=== PATIENT | female | born 1990 | race American Indian/Alaskan Native ===

== ENCOUNTER 2017-02-12 15:27 | Emergency (ER) | payer MEDICAID, OTHER ==
[2017-02-12 15:28] VITALS: BMI 34.5
[2017-02-12 15:49] VITALS: O2SAT 100
--- NOTE | 2017-02-12 17:52 | C.PDOC ---
History Of Present Illness <Julisa Dickens - Last Filed: 02/12/17 19:01> <Mireya Yost - Last Filed: 02/12/17 21:38> 26 yr old female with , presents to the ER with complaints of spotting on and off for the past 3 days. Patient states her LMP was in September and has been irregular and she has spotted on and off since then. Patient also c/o lower abdominal pain with . Patient denies fever, chills, chest pain, SOB, nausea, vomiting, diarrhea, dysuria, incontinence, back pain, weakness or numbness. (Julisa Dickens) History Per: Patient Onset/Duration Of Symptoms: Intermittent Episodes (3 days) <Julisa Dickens - Last Filed: 02/12/17 19:01> <Mireya Yost - Last Filed: 02/12/17 21:38> Time Seen by Provider: 02/12/17 15:56 Chief Complaint (Nursing): Female Genitourinary Past Medical History Reviewed: Historical Data, Nursing Documentation, Vital Signs - Medical History PMH: No Chronic Diseases Surgical History: Cholecystectomy Family History: States: No Known Family Hx - Social History Hx Tobacco Use: Yes Hx Alcohol Use: Yes Hx Substance Use: No - Immunization History Hx Tetanus Toxoid Vaccination: No Hx Influenza Vaccination: Yes Hx Pneumococcal Vaccination: Yes <Julisa Dickens - Last Filed: 02/12/17 19:01> Vital Signs: Last Vital Signs Temp 97.7 F 02/12/17 20:49 Pulse 104 H 02/12/17 20:49 Resp 20 02/12/17 20:49 BP 141/83 02/12/17 20:49 Pulse Ox 100 02/12/17 20:49 - [facility] Procedures INJECT RH IMMUNE GLOBUL (05/10/15) Review Of Systems Except As Marked, All Systems Reviewed And Found Negative. Constitutional: Negative for: Fever, Chills Cardiovascular: Negative for: Chest Pain Respiratory: Negative for: Shortness of Breath Gastrointestinal: Positive for: Abdominal Pain. Negative for: Nausea, Vomiting , Diarrhea Genitourinary: Positive for: Frequency, Vaginal Bleeding, Other ((+) Vaginal spotting). Negative for: Dysuria, Incontinence Musculoskeletal: Negative for: Back Pain Neurological: Negative for: Weakness, Numbness <Julisa Dickens - Last Filed: 02/12/17 19:01> Physical Exam - Physical Exam Appears: Well, Non-toxic, No Acute Distress Skin: Warm, Dry Head: Atraumatic, Normacephalic Eye(s): bilateral: Normal Inspection, PERRL, EOMI Oral Mucosa: Moist Neck: Normal ROM Chest: Symmetrical, No Tenderness Cardiovascular: Rhythm Regular, No Murmur Respiratory: Normal Breath Sounds, No Rales, No Rhonchi, No Stridor, No Wheezing Gastrointestinal/Abdominal: Bowel Sounds, Soft, Tenderness (Mild lower right pelvic tenderness.), No Guarding, No Rebound Back: No CVA Tenderness Extremity: Normal ROM, No Calf Tenderness, No Swelling Neurological/Psych: Oriented x3, Normal Speech, Normal Cognition, Normal Motor <Julisa Dickens - Last Filed: 02/12/17 19:01> ED Course And Treatment - Laboratory Results Result Diagrams: 02/12/17 17:54 02/12/17 17:54 Urine POC: Positive O2 Sat by Pulse Oximetry: 100 Progress Note: pt to be signed out to Dr Yost to f/u pelvic sonogram, ua. and dispo accordingly Reevaluation Time: 19:00 Reassessment Condition: Unchanged <Julisa Dickens - Last Filed: 02/12/17 19:01> - Laboratory Results Result Diagrams: 02/12/17 17:54 02/12/17 17:54 <Mireya Yost - Last Filed: 02/12/17 21:38> Medical Decision Making <Julisa Dickens - Last Filed: 02/12/17 19:01> <Mireya Yost - Last Filed: 02/12/17 21:38> Medical Decision Making: PLAN: * US - Transvaginal * GC Chlamydia * CBC * BETA Quant * Urinalysis (Julisa Dickens) Disposition - Disposition Disposition Time: 19:03 <Julisa Dickens - Last Filed: 02/12/17 19:01> Counseled Patient/Family Regarding: Studies Performed, Diagnosis, Need For Followup, Smoking Cessation - Disposition Disposition Time: 19:00 <Mireya Yost - Last Filed: 02/12/17 21:38> - Disposition Referrals: 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 - Scribe Statement The provider has reviewed the documentation as recorded by the Scribe <Julisa Dickens - Last Filed: 02/12/17 19:01> <Mireya Yost - Last Filed: 02/12/17 21:38> - Scribe Statement Jacquelin Barreto All medical record entries made by the Scribe were at my direction and personally dictated by me. I have reviewed the chart and agree that the record accurately reflects my personal performance of the history, physical exam, medical decision making, and the department course for this patient. I have also personally directed, reviewed, and agree with the discharge instructions and disposition. (Julisa Dickens)
[2017-02-12 17:59] LABS: BASO # 0.1 K/uL (0.0-0.2); EOS # 0.1 K/uL (0.0-0.7); LYMPH # 2.9 K/uL (1.0-4.3); MEAN CELL VOLUME 87.7 fL (81.0-99.0); MEAN CORPUSCULAR HEMOGLOBIN 30.2 pg (27.0-31.0); MEAN CORPUSCULAR HGB CONC 34.4 g/dL (33.0-37.0); MEAN PLATELET VOLUME 9.4 fL (7.2-11.7); MONO # 0.5 K/uL (0.0-0.8); MONO % 3.8 % (0.0-10.0); RED CELL DISTRIBUTION WIDTH 13.2 % (11.5-14.5); WHITE BLOOD COUNT 12.5 K/uL (4.8-10.8)
[2017-02-12 18:07] LABS: CHLORIDE 101 mmol/L (98-107)
[2017-02-12 18:08] LABS: POTASSIUM 3.5 mmol/L (3.6-5.2); SODIUM 135 mmol/L (132-148)
[2017-02-12 18:10] LABS: ALB/GLOB RATIO 1.5 (1.0-2.1); ALKALINE PHOSPHATASE 61 U/L (38-126); ALT/SGPT 39 U/L (9-52); AST/SGOT 27 U/L (14-36); BILIRUBIN,TOTAL 0.5 mg/dL (0.2-1.3); BLOOD UREA NITROGEN 7 mg/dL (7-17); CARBON DIOXIDE 19 mmol/L (22-30); GFR AFRICAN-AMERICAN > 60; TOTAL PROTEIN 7.4 g/dL (6.3-8.3)
[2017-02-12 18:11] LABS: CALCIUM 8.8 mg/dl (8.6-10.4); GLUCOSE,RANDOM 59 mg/dL (65-105)
[2017-02-12 18:15] LABS: RBC URINE 4 /hpf (0-3); TRANSITIONAL EPITHIAL < 1 /hpf (0-3); URINE BACTERIA RARE (<OCC); URINE BILIRUBIN NEGATIVE (NEGATIVE); URINE COLOR Yellow (YELLOW); URINE GLUCOSE (UA) NORMAL (Normal); URINE KETONE NEGATIVE (NEGATIVE); URINE PROTEIN NEGATIVE (NEGATIVE); URINE UROBILINOGEN NORMAL mg/dL (0.2-1.0); WBC URINE 7 /hpf (0-5)
[2017-02-12 18:16] LABS: URINE BLOOD 1+ (NEGATIVE); URINE LEUKOCYTE ESTERASE 1+ Leu/uL (Negative)
[2017-02-12 20:50] VITALS: BP 141/83; PULSE 104; RESP 20; TEMP 97.7
--- NOTE | 2017-02-13 11:16 | US ---
PROCEDURE: Obstetrical ultrasound examination HISTORY: right pelvic pain, bleeding COMPARISON: Not available TECHNIQUE: Transabdominal FINDINGS: The examination demonstrates a single live intrauterine gestation in cephalic presentation. The heart rate is 145 beats per minute. A grossly normal quantity of amniotic fluid is visualized. The cervix is closed and measures 3.8 cm in length. A normal posterior placenta is identified. The placenta is low lying, the inferior margin approximately 7 mm from the internal cervical os. Followup is advised. biometry yields a gestational age by ultrasound of 20 weeks 0 days. The DANIELLE by ultrasound is 07/02/2017. The EFW is 346.17 g. Limited review of anatomy demonstrates no gross abnormality. Two normal kidneys are demonstrated. Fluid distends the stomach and urinary bladder. A 4 chamber heart is visualized. A three-vessel umbilical cord is identified. IMPRESSION: Single live intrauterine gestation of approximately 20 weeks 0 days gestational age. No gross anatomic abnormality. Normal amniotic fluid volume. Posterior placenta, low lying. Followup advised. Cervix long and closed. heart rate 145. Preliminary interpretation of this examination was reported by [facility] at 9:24 p.m. on 02/12/2017. There is concurrence of this report with the preliminary interpretation.
== END 2017-02-12 21:55 | disposition home or self-care (01) ==
LOC: C.ER 15:27
DX: O20.0 Threatened abortion (principal); O23.42 Unspecified infection of urinary tract in pregnancy, second trimester; Z3A.20 20 weeks gestation of pregnancy

== ENCOUNTER 2017-03-04 10:34 | Emergency (ER) | payer MEDICAID ==
[2017-03-04 11:32] VITALS: BMI 34.0
--- NOTE | 2017-04-28 13:14 | OBHP ---
Datetime: 03/04/2017 11:03 IP Adm Impression: , intrauterine IP Admit Plan: Observation/Evaluation; Discharge home Admit Comment, IP Provider: 26 y.o. , LMP unsure, DANIELLE 06/30/17, EGA 23weeks 1 day, per patien t by ultrasound, c/o 1) intermittnet vaginal spotting x "weeks". Last had vaginal intercourse 01/07/17; 2) shooting vaginal pain/pressure since last night/ this morning; 3) vomiting since 0600 hours -vomi ham x 4 since then; with intermittent nausea. Not vomited in Ob-ED since being there. No sick contact s. No recent travel. Ate cheeseburger with liberian fries and food from [employer] yesterday. Ate oatmeal this morning - vomited after. Took antibiotics for UTI earlier this morning before eating on an empty stomach. (+) FM; denies leakage of fluid or contractions/ crampy lower abdominal pain. car e: clinic associated with [facility]; per patient, no issues. Last visit 1 week ago; missed lev al appointment yesterday. NB: patient is a recovering alcoholic "clean" x 6 years. Also admits to smo aidee cigarettes 2-3/day; and to "smoking behind" a friend of hers yesterday ... "I don't know what wa s in her cigarette. After I took a puff or two of her cigarette, my mouth felt funny". To this end, p bereketstephenie is requesting her urine to be tested for drugs. P Ob: x 3: 2006, male, 6lb 1oz, 2007, female, 6lb 2oz - both at [facility]; no complications. 2012, female, 5lb 10oz, CH - pre-eclampsia. 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 2012, pre-eclampsia; 2012, H pylori - completed course of antibiotics; and "non alcholic fatty liver disease". [facility] has routine GI visits, including during index PSH: 2006, laparoscopic cholecystectomy. 2012, upper endoscopy with colonoscopy; both at [facility] Meds: PNV - QD. MacroBID - started 03/01/16 for UTI; diagnosed during E.D.visit 02/12/17. NKDA Soc Hx: (+) tobacco 2 cig/day; denies current illicit drug use; recovering EtOH abuser. Lives with FOB; together x 2 years. Unemployed Fam Hx: Mother alive 44 y.o. - no known med issues. Father alive 45 y.o. no med issues. No knwn fa m h/o Breast/ endo/GI cancers P.E.: As above. Mildly obese in NAD. Awake, alert, oriented to time, person and place. Pleasant an d cooperative Assessment: 26 yo P3013, 23w 1d, vomiting as above. - most likely related to food ingestion; takin g antibiotics on empty stomach;and/or illicit drug exposure. History of fatty liver disease; h/o alco hol abuse - in remission. FHR tones ausculated and wnl for gestational age. Spec exam - suggestive of bacterial vaginitis. This was explained to patient; along with treatment. Patient is otherwise clini pricilla stable. Plan: 1) urine drug screen 2) Observe Addendum: 1230hours - Urine drug screen is + phencyclidine. Results discussed with patient; she requested a hard copy of this report. Patient signed a release of medical information form - copy of the results was given to her Plan: 1) Discharge home 2) Rx: metronidazole 500 mg po BID x 7 days (take after completing antibiotics for UTI ) 3) Rx: diflucan 150 mg p.o. x 1 dose (take after all antibiotics) 4) Walk in for next visit at [facility] clinic 5) Advised to omit greasy, fried foods and to increase p.o. intake of water to 1/2 weight in ounce s. Pelvic Type - PN: Adequate Extremities - PN: Normal Abdomen - PN: Normal Back - PN: Normal Breast - PN: Not Done Lungs - PN: Normal Heart - PN: Normal Thyroid - PN: Not Done Neurologic - PN: Normal HEENT - PN: Normal General - PN: Normal FHR - Baseline A Provider: 150 Contraction Comments Provider: none Comments, ACOG Physical Exam: Skin: warm, dry, intact. Patient has a peculiar body odor - stifling. Abdomen: soft, non tender in all quadrants Perineum: dry; no discharge or blood noted Speculum: no blood in vagnal vault. (+) creamy white, musty-odored discharge Extremities: no calf tenderness, cyanosis or edema All other systems reviewed - as per HPI Gestation - Est Wks by US: 23w 1d EGA AdmitDate IP: 23.3 Vital Signs Provider: Reviewed; Within Normal Limits IP Chief Complaint: Other Dilatation, Provider: 0 Effacement, Provider: 0 Station, Provider: floating Genitourinary Exam: Normal DTRs - PN: Not Done
== END 2017-03-04 12:09 | disposition home or self-care (01) ==
LOC: C.EROB 10:34
DX: O21.0 Mild hyperemesis gravidarum (principal); Z3A.23 23 weeks gestation of pregnancy

== ENCOUNTER 2017-03-25 14:11 | Emergency (ER) | payer MEDICAID, OTHER ==
[2017-03-25 14:11] VITALS: BMI 34.0
[2017-03-25 14:18] VITALS: RESP 18; TEMP 98.5
--- NOTE | 2017-03-25 14:38 | C.PDOC ---
History Of Present Illness 26 y/o female brought to emergency department in custody of [facility]'s Office for crisis evaluation. Patient reportedly verbalized that she wanted to hurt herself before being incarcerated. In ER, patient states she is experiencing a lot of stress, with thoughts of harming herself. Patient reports she is currently 26 weeks , seen in this ER for in the past. Denies any other symptoms. Denies suicidal plan or attempts. Time Seen by Provider: 03/25/17 14:19 Chief Complaint (Nursing): Psychiatric Evaluation History Per: Patient History/Exam Limitations: no limitations Current Symptoms Are (Timing): Still Present Suicide/Self Injury Attempted (Context): None Associated Symptoms: Suicidal Thoughts. denies: Suicidal Plan Involuntary Hold By: Local Law Enforcement Recent travel outside of the [place]: No Past Medical History Reviewed: Historical Data, Nursing Documentation, Vital Signs Vital Signs: Last Vital Signs Temp 98.5 F 03/25/17 14:17 Pulse 83 03/25/17 17:20 Resp 18 03/25/17 17:20 BP 116/73 03/25/17 17:20 Pulse Ox 99 03/25/17 18:20 - Medical History PMH: No Chronic Diseases Surgical History: Cholecystectomy - [facility] Procedures INJECT RH IMMUNE GLOBUL (05/10/15) Family History: States: Unknown Family Hx - Social History Hx Tobacco Use: Yes Hx Alcohol Use: Yes Hx Substance Use: No - Immunization History Hx Tetanus Toxoid Vaccination: No Hx Influenza Vaccination: Yes Hx Pneumococcal Vaccination: Yes Review Of Systems Except As Marked, All Systems Reviewed And Found Negative. Constitutional: Negative for: Fever, Chills Cardiovascular: Negative for: Chest Pain Respiratory: Negative for: Cough, Shortness of Breath Gastrointestinal: Negative for: Nausea, Vomiting, Abdominal Pain Skin: Negative for: Rash Physical Exam - Physical Exam Appears: Non-toxic, No Acute Distress Skin: Warm, Dry Head: Atraumatic, Normacephalic Oral Mucosa: Moist Chest: Symmetrical Cardiovascular: Rhythm Regular Respiratory: Normal Breath Sounds, No Rales, No Rhonchi, No Wheezing Gastrointestinal/Abdominal: Soft, No Tenderness, No Guarding, No Rebound Back: Normal Inspection Extremity: Normal ROM, Capillary Refill (< 2 sec. ) Neurological/Psych: Oriented x3, Normal Speech, Normal Cognition Gait: Steady ED Course And Treatment - Laboratory Results Result Diagrams: 03/25/17 15:14 03/25/17 15:14 Lab Interpretation: Normal O2 Sat by Pulse Oximetry: 99 (RA) Pulse Ox Interpretation: Normal Progress Note: Case discussed and patient evaluated by Crisis team who discussed case with Dr Julian and recommend discharge. Abdomen soft non-tender ( +) FHB. Patient cleared from a medical and psyciatric point of view for incarceration Reassessment Condition: Unchanged - Physician Consult Information Physician Contacted: Shirley Julian Outcome Of Conversation: discharge Disposition Counseled Patient/Family Regarding: Studies Performed, Diagnosis, Need For Followup - Disposition Referrals: [facility] [Outside] [facility] [Outside] Disposition: RELEASED IN POLICE CUSTODY Disposition Time: 18:10 Condition: STABLE Additional Instructions: Cleared from and psychiatric point of view for incarceration Return to ED if any increase symptoms Instructions: (ED), Depression (ED) - POA Present On Arrival: None - Clinical Impression Clinical Impression: Moderate major depression, single episode, - 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 - Scribe Statement The provider has reviewed the documentation as recorded by the Scribe Bradly Westbrook All medical record entries made by the Ambrose were at my direction and personally dictated by me. I have reviewed the chart and agree that the record accurately reflects my personal performance of the history, physical exam, medical decision making, and the department course for this patient. I have also personally directed, reviewed, and agree with the discharge instructions and disposition.
[2017-03-25 15:20] LABS: BASO % 0.2 % (0.0-2.0); EOS # 0.1 K/uL (0.0-0.7); EOS % 0.9 % (0.0-4.0); LYMPH # 1.9 K/uL (1.0-4.3); LYMPH % 21.3 % (20.0-40.0); MEAN CELL VOLUME 87.2 fL (81.0-99.0); MEAN CORPUSCULAR HEMOGLOBIN 29.6 pg (27.0-31.0); MEAN PLATELET VOLUME 8.6 fL (7.2-11.7); MONO # 0.4 K/uL (0.0-0.8); MONO % 4.7 % (0.0-10.0); RED CELL DISTRIBUTION WIDTH 13.1 % (11.5-14.5); WHITE BLOOD COUNT 8.8 K/uL (4.8-10.8)
[2017-03-25 15:29] LABS: RBC URINE 1 /hpf (0-3); URINE BACTERIA RARE (<OCC); URINE BILIRUBIN NEGATIVE (NEGATIVE); URINE BLOOD NEGATIVE (NEGATIVE); URINE COLOR Yellow (YELLOW); URINE GLUCOSE (UA) 2+ mg/dL (Normal); URINE KETONE 1+ mg/dL (NEGATIVE); URINE LEUKOCYTE ESTERASE TRACE Leu/uL (Negative); URINE PROTEIN NEGATIVE (NEGATIVE); URINE UROBILINOGEN NORMAL mg/dL (0.2-1.0); WBC URINE 5 /hpf (0-5)
[2017-03-25 15:30] LABS: CHLORIDE 100 mmol/L (98-107)
[2017-03-25 15:31] LABS: SODIUM 133 mmol/L (132-148)
[2017-03-25 15:33] LABS: ALB/GLOB RATIO 1.2 (1.0-2.1); ALKALINE PHOSPHATASE 60 U/L (38-126); AST/SGOT 36 U/L (14-36); BILIRUBIN,TOTAL 0.4 mg/dL (0.2-1.3); CARBON DIOXIDE 22 mmol/L (22-30); GFR AFRICAN-AMERICAN > 60; TOTAL PROTEIN 6.6 g/dL (6.3-8.3)
[2017-03-25 15:34] LABS: ALCOHOL SERUM < 10 mg/dl (0-10); ALT/SGPT 70 U/L (9-52); BLOOD UREA NITROGEN 4 mg/dL (7-17); CALCIUM 8.6 mg/dl (8.6-10.4); GLUCOSE,RANDOM 116 mg/dL (65-105)
[2017-03-25 17:21] VITALS: BP 116/73; PULSE 83
[2017-03-25 17:26] VITALS: O2SAT 99
== END 2017-03-25 17:57 ==
LOC: C.ER 14:11
DX: O99.342 Other mental disorders complicating pregnancy, second trimester (principal); F32.1 Major depressive disorder, single episode, moderate; Z3A.26 26 weeks gestation of pregnancy

== ENCOUNTER 2017-04-28 11:28 | Emergency (ER) | payer OTHER ==
[2017-04-28 11:28] VITALS: BMI 34.0
[2017-04-28 11:46] VITALS: TEMP 98.6; O2SAT 99
--- NOTE | 2017-04-28 12:53 | C.PDOC ---
History Of Present Illness 26 y/o female, , 31 weeks preg, edc 06/30, comes to ed with multiple complaints; pt sts she has intermittent cramping abdominal pain for a few days; no n/v/d, no vaginal bleeding or discharge. no urinary symptoms. pt feels baby kicking. pt also c/o right breast pain for 2 days with yellowish discharge from nipple. no fever or chills. also c/o feeling depressed and anxious, denies hi, si and ah. . pt seen by Rachel from crisis team, was given info for [facility] for counseling. Time Seen by Provider: 04/28/17 12:11 Chief Complaint (Nursing): Breast Problem History Per: Patient History/Exam Limitations: no limitations Onset/Duration Of Symptoms: Days (few) Current Symptoms Are (Timing): Still Present Severity: Mild Pain Scale Rating Of: 3 Recent travel outside of the [place]: No Past Medical History Reviewed: Historical Data, Nursing Documentation, Vital Signs Vital Signs: Last Vital Signs Temp 98.6 F 04/28/17 11:46 Pulse 99 H 04/28/17 18:04 Resp 15 04/28/17 18:04 BP 121/85 04/28/17 18:04 Pulse Ox 99 04/30/17 04:27 - Medical History PMH: No Chronic Diseases Surgical History: Cholecystectomy - [facility] Procedures INJECT RH IMMUNE GLOBUL (05/10/15) Family History: States: Unknown Family Hx - Social History Hx Tobacco Use: Yes Hx Alcohol Use: No Hx Substance Use: No - Immunization History Hx Tetanus Toxoid Vaccination: No Hx Influenza Vaccination: Yes Hx Pneumococcal Vaccination: Yes Review Of Systems Except As Marked, All Systems Reviewed And Found Negative. Constitutional: Negative for: Fever, Chills Respiratory: Negative for: Cough, Shortness of Breath Gastrointestinal: Positive for: Abdominal Pain. Negative for: Nausea, Vomiting , Diarrhea Genitourinary: Negative for: Dysuria, Hematuria, Vaginal Discharge, Vaginal Bleeding Musculoskeletal: Positive for: Other (right breast pain) Skin: Positive for: Lesions (breast right). Negative for: Rash Neurological: Negative for: Weakness, Numbness Psych: Positive for: Anxiety, Depression. Negative for: Suicidal ideation, Other (homicidal ideation) Physical Exam - Physical Exam Appears: Non-toxic, No Acute Distress Skin: Warm, Dry, Other (2 x 3 cm tender firm area proximal to right areola, no warmth, no discharge elicted from nipple, ) Head: Atraumatic, Normacephalic Oral Mucosa: Moist Neck: Normal ROM Chest: Symmetrical, No Deformity, No Tenderness Cardiovascular: Rhythm Regular, No Murmur Respiratory: Normal Breath Sounds, No Rales, No Rhonchi, No Wheezing Gastrointestinal/Abdominal: Bowel Sounds, Soft, Tenderness (diffuse tenderness, gravid abdomen), Distention, No Guarding, No Rebound Back: Normal Inspection, No CVA Tenderness Neurological/Psych: Oriented x3, Normal Speech, Normal Cognition, Normal Motor, Normal Sensation ED Course And Treatment O2 Sat by Pulse Oximetry: 99 (room air) Pulse Ox Interpretation: Normal Medical Decision Making Medical Decision Making: pt is 7 months preg with abdominal cramping, no bleeding. to be sent to L & D for clearance and will return to ED to address other complaints. 400 pm pt returned to ED after L &D evaluation. pt was given one liter ivf, ua and utox sent. pt has been cleared obstetrically. pt found to have pcp in urine. report made to [facility]: I spoke with Niki, counselor # [phone]. Per Niki, report will be made though [facility] office and will be addressed in the next 24 hours. [facility] office [phone] Disposition Counseled Patient/Family Regarding: Studies Performed, Diagnosis, Need For Followup, Rx Given - Disposition Referrals: Darron Turner MD [Staff Provider] - Disposition: HOME/ ROUTINE Disposition Time: 18:28 Condition: STABLE Additional Instructions: Apply warm compresses to breast several times a day. Take antibiotics as prescribed. Tylenol for pain. Follow up with Dr Turner, call his office tomorrow for an appointment. Return to ER for any worsening symptoms. Follow up with [facility] for counseling. Prescriptions: Acetaminophen 650 mg PO Q6 #30 tablet Cephalexin [cephalexin] 500 mg PO Q6 #28 cap Instructions: Breast Abscess Drainage (ED) Forms: General Discharge Instructions - Clinical Impression Clinical Impression: Abscess of breast,
[2017-04-28] MEDS ORDERED: Lactated Ringer's 1,000 ML IV ONE (14:43)
[2017-04-28 15:15] LABS: RBC URINE < 1 /hpf (0-3); URINE BILIRUBIN NEGATIVE (NEGATIVE); URINE BLOOD NEGATIVE (NEGATIVE); URINE COLOR Yellow (YELLOW); URINE GLUCOSE (UA) NORMAL (Normal); URINE KETONE TRACE mg/dL (NEGATIVE); URINE LEUKOCYTE ESTERASE NEG Leu/uL (Negative); URINE PROTEIN NEGATIVE (NEGATIVE); URINE UROBILINOGEN NORMAL mg/dL (0.2-1.0); WBC URINE 3 /hpf (0-5)
--- NOTE | 2017-04-28 15:25 | OBHP ---
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 Last visit 1 week a go;. NB: patient is a recovering alcoholic "clean" x 6 years. also chase shx of smoking cigarettes P Ob: x 3: 2006, male, 6lb 1oz, 2008, female, 6lb 2oz - both at [facility]; no complications. 2012, female, 5lb 10oz, CH - pre-eclampsia. 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 2012, pre-eclampsia; 2012, H pylori - completed course of antibiotics; and "non alcholic fatty liver disease". States has routine GI visits, including during index PSH: 2006, laparoscopic cholecystectomy. 2012, upper endoscopy with colonoscopy; both at [facility] Meds: PNV - QD. Soc Hx: (+) tobacco 2 cig/day; denies current illicit drug use; recovering EtOH abuser. Lives with FOB; together x 2 years. Unemployed Fam Hx: Mother alive 44 y.o. - no known med issues. Father alive 45 y.o. no med issues. No knwn fa m h/o Breast/ endo/GI cancers P.E.: As above. Mildly obese in NAD. Awake, alert, oriented to time, person and place. Assessment: 26 yo P3 at 31.2 wga with right breast pain and lower abdominal cramping.FHT cat1 Cervix closed patient sent to er for evaluation of breast pain and feeling depressed UA and urine drug screen pending.er to follow up Pelvic Type - PN: Adequate Extremities - PN: Normal General - PN: Normal Contraction Comments Provider: none EGA AdmitDate IP: 31.2 Vital Signs Provider: Reviewed IP Chief Complaint: Other FHR Category Provider Fetus A: Category I Genitourinary Exam: Normal DTRs - PN: Normal
[2017-04-28 18:06] VITALS: BP 121/85; PULSE 99; RESP 15
--- NOTE | 2017-04-29 09:32 | US ---
PROCEDURE: Diagnostic right breast ultrasound examination HISTORY: painful mass superior to nipple COMPARISON: Not available TECHNIQUE: Targeted right breast ultrasound examination for painful mass superior to the nipple FINDINGS: In the region of concern, in the 1 o'clock axis of the right breast, periareolar, there is an irregularly-shaped anechoic mass with irregular margins, measuring 3.5 x 1.1 x 3.3 cm. There is peripheral vascularity. There are linear bands of vascularity apparently likely at the periphery of this structure. Concerning for abscess. Cannot rule out hematoma. Please correlate clinically. Consider diagnostic aspiration. Also noted is hypervascularity of the retroareolar tissues common nonspecific. Possible mastitis. No other mass identified. IMPRESSION: Irregular anechoic mass with peripheral vascularity, possibly abscess, measuring 3.5 x 1.1 x 3.3 cm. Images are nonspecific. Finding may represent a hematoma. Less likely necrotic mass. Clinical correlation requested. Recommend followup ultrasound examination Preliminary interpretation of this examination was reported by [employer] [facility] at 6:11 p.m. on 04/28/2017. There is concurrence of this report with the preliminary interpretation. However, the BI-RADS category is a foote differs from the original report. Recommendation for short interval followup in 1 month is made. BIRADS 3 Probably Benign Recommendation: Short-interval 1 month follow-up ultrasound advised
== END 2017-04-28 18:38 | disposition home or self-care (01) ==
LOC: C.EROB 11:28 → C.ER 11:28 → C.EROB 18:38
DX: O91.113 Abscess of breast associated with pregnancy, third trimester (principal); Z3A.31 31 weeks gestation of pregnancy
CPT/HCPCS: 76642; 80324; 80345; 80346; 80349; 80353; 80358; 80361; 81001; 83992; 99284; J7120

== ENCOUNTER 2017-04-29 12:01 | Emergency (ER) | payer OTHER ==
[2017-04-29 12:17] VITALS: RESP 18; TEMP 98.2; BMI 33.0
--- NOTE | 2017-04-29 12:20 | C.PDOC ---
History Of Present Illness 26 yo female come in for re-evaluation of Right breast pain gradually worsen for past week. Pt admits, was seen here yesterday, when was evaluated by OB ob-call and Breast US performed with results: Right irregular anechoic mass with peripheral vascularity, possibly abscess 3.5#1.1#3.3 cm. At the time of evaluation, pt appears in painful distress, crying. Pt received yesterday Rx: Cephalexin, admits took dose of abx today. Otherwise, pt denies fever, chills, abd. pain, N/V, vaginal bleeding or discharge , denies nipple changes or inversion, no skin changes. Time Seen by Provider: 04/29/17 12:08 Chief Complaint (Nursing): Breast Problem History Per: Patient History/Exam Limitations: no limitations Onset/Duration Of Symptoms: Gradual (past week) Current Symptoms Are (Timing): Still Present Severity: Mild Pain Scale Rating Of: 3 Reports Recently: Seen In ED, Treated By A Physician Recent travel outside of the [place]: No Additional History Per: Prior Records Past Medical History Reviewed: Historical Data, Nursing Documentation, Vital Signs Vital Signs: Last Vital Signs Temp 98.2 F 04/29/17 12:16 Pulse 69 04/29/17 13:54 Resp 18 04/29/17 13:54 BP 102/65 04/29/17 13:54 Pulse Ox 97 04/29/17 13:54 Surgical History: Cholecystectomy - [facility] Procedures INJECT RH IMMUNE GLOBUL (05/10/15) Family History: States: Unknown Family Hx - Social History Hx Tobacco Use: Yes Hx Alcohol Use: No Hx Substance Use: No - Immunization History Hx Tetanus Toxoid Vaccination: No Hx Influenza Vaccination: Yes Hx Pneumococcal Vaccination: Yes Review Of Systems Except As Marked, All Systems Reviewed And Found Negative. Constitutional: Negative for: Fever, Chills Gastrointestinal: Negative for: Nausea, Vomiting, Abdominal Pain Genitourinary: Negative for: Vaginal Discharge, Vaginal Bleeding, Other (nipple discharge or inversion) Musculoskeletal: Positive for: Other (right breast pain) Skin: Negative for: Other (skin changes) Physical Exam - Physical Exam Appears: Well, Non-toxic, No Acute Distress Skin: Normal Color, Warm Head: Normacephalic Eye(s): bilateral: PERRL Throat: Normal, No Erythema, No Exudate, No Drooling Neck: Supple Chest: Other (Right breast: 3#3cm tender mass palpable just above niple areola at 12 o'clock, mild skin erythema. No flactulance, no proximal streaking, no nipple changes.) Cardiovascular: Rhythm Regular Respiratory: Normal Breath Sounds Gastrointestinal/Abdominal: Other (Gravid.) Extremity: No Pedal Edema Neurological/Psych: Oriented x3, Normal Speech ED Course And Treatment O2 Sat by Pulse Oximetry: 100 (room air) Pulse Ox Interpretation: Normal Progress Note: Case discussed with Surgery and discharge with outpt f/u recommend. Pt was seen by ED attending and agrees with plan and tx. On re-eavl, pt is afebrile, hemodynmiclays table. Non-toxic. Right breast exam c/w small cyst vx cyst, mastitis. No flactulance or proximal streaking. Pt advised on course of ds, advised to cont. abx as initiated yesterday. Pt ref. to F/u with OB abd Surgery in 3 days for re-eval. retur if any new changes. - Incision & Drainage Of Abscess Anesthesia: Lidocaine 2% Procedure: Incised W/Scalpel Blade#: (Needle gauge 18, no discharges able to obtained) Disposition Counseled Patient/Family Regarding: Diagnosis, Need For Followup - Disposition Referrals: Darron Turner MD [Staff Provider] - Disposition: HOME/ ROUTINE Disposition Time: 12:55 Condition: STABLE Additional Instructions: HOT COMPRESSES TO AREA FOLLOW BY BREAST MASSAGE TAKE MEDICATION PRESCRIBED FOLLOW UP WITH SURGERY IN 1-2 DAYS FOR RE-EVALUATION. RETURN IF ANY WORSENING OR NEW CHANGES. Instructions: Mastitis (ED) - Clinical Impression Clinical Impression: Cyst of breast, Mastitis - Scribe Statement The provider has reviewed the documentation as recorded by the Scribe Vickie Nicolas All medical record entries made by the Scribe were at my direction and personally dictated by me. I have reviewed the chart and agree that the record accurately reflects my personal performance of the history, physical exam, medical decision making, and the department course for this patient. I have also personally directed, reviewed, and agree with the discharge instructions and disposition.
[2017-04-29] MEDS ORDERED: Lidocaine 2% Inj (20ml) INFIL ONE (12:31)
[2017-04-29] MEDS ORDERED: Lidocaine 2% Inj (20ml) ONE (12:31)
[2017-04-29 13:55] VITALS: BP 102/65; PULSE 69
[2017-04-29 14:46] VITALS: O2SAT 100
== END 2017-04-29 13:56 | disposition home or self-care (01) ==
LOC: C.ER 12:01
DX: N60.01 Solitary cyst of right breast (principal); N61.0 Mastitis without abscess

== ENCOUNTER 2017-05-01 08:02 | Day surgery (SDC) | payer OTHER ==
[2017-05-01 08:02] VITALS: BMI 33.0
[2017-05-01] MEDS ORDERED: Sodium Chloride 0.9% 1,000 ML IV ONE ×2 (08:54→11:56)
[2017-05-01] MEDS ORDERED: Sodium Chloride 0.9% 1,000 ML ONE (09:30)
[2017-05-01] MEDS ORDERED: ceFAZolin IV 1 gm in Dextrose 0 GM/0 ML BAG IVPB ONE (09:35)
[2017-05-01] MEDS ORDERED: Lidocaine 1% Inj (20ml) ONE ×2 (09:36→10:30)
--- NOTE | 2017-05-01 09:38 | CP.PCM.CON ---
<Sarbjit Saleh - Last Filed: 05/01/17 09:34> History of Present Illness - History of Present Illness History of Present Illness: SURGERY NOTE FOR DR. HINDS 26F presents to [facility] with right breast abscess that shes states began 4 days ago. She admits to pain on palpation, denies fevers, chills, nausea or vomiting. Patient states she noticed discharged from the right breast nipple, she states the discharge is white in color and likely purulent. She is currently 31 weeks . PMH: denies PSH: Cholecystectomy Social: smokes tobacco, denies alcohol, denies illicit drugs Allergies: NKDA Past Patient History - Infectious Disease Hx of Infectious Diseases: None - Past Social History Smoking Status: Heavy Smoker > 10 Cigarettes Daily - CARDIAC Hx Hypertension: No - PULMONARY Hx Tuberculosis: No - NEUROLOGICAL Hx Seizures: No - HEMATOLOGICAL/ONCOLOGICAL Hx Human Immunodeficiency Virus (HIV): No - GENITOURINARY/GYNECOLOGICAL Hx Sexually Transmitted Disorders: No - PSYCHIATRIC Hx Substance Use: No - SURGICAL HISTORY Hx Surgeries: Yes Hx Cholecystectomy: Yes - ANESTHESIA Hx Anesthesia: Yes Hx Anesthesia Reactions: No Meds Allergies/Adverse Reactions: Allergies Allergy/AdvReac Type Severity Reaction Status Date / Time No Known Allergies Allergy Verified 05/01/17 08:20 - Medications Medications: Current Medications Sodium Chloride (Sodium Chloride 0.9%) 1,000 mls @ 100 mls/hr IV .Q10H ONE Stop: 05/01/17 18:53 Physical Exam - Constitutional Appears: Non-toxic, No Acute Distress - Eye Exam Eye Exam: EOMI, PERRL - ENT Exam ENT Exam: Mucous Membranes Moist - Respiratory Exam Respiratory Exam: Clear to Auscultation Bilateral, NORMAL BREATHING PATTERN - Cardiovascular Exam Cardiovascular Exam: REGULAR RHYTHM, +S1, +S2 - GI/Abdominal Exam GI & Abdominal Exam: Soft. absent: Distended, Firm, Guarding, Rebound, Rigid, Tenderness - Extremities Exam Extremities exam: Negative for: pedal edema, tenderness - Neurological Exam Neurological exam: Alert, Oriented x3 - Psychiatric Exam Psychiatric exam: Anxious, Normal Affect - Skin Skin Exam: Dry, Intact, Normal Color, Warm Additional comments: right breast warm to touch, mass felt superior to nipple, tender to palpation, no discharge noted Results - Vital Signs Recent Vital Signs: Last Vital Signs Temp 98.6 F 05/01/17 08:14 Pulse 99 H 05/01/17 08:14 Resp 18 05/01/17 08:14 BP 105/71 05/01/17 08:14 Pulse Ox 98 05/01/17 08:14 Assessment & Plan - Assessment and Plan (Free Text) Assessment: 26F with right breast abscess Plan: - OBGYN consult for evaluation - Ultrasound of right breast - Booked and consented for incision and drainage of right breast abscess Discussed with Dr. Guzman Saleh, PGY1 <Antonio Hinds - Last Filed: 05/01/17 12:59> Meds - Medications Medications: Current Medications Sodium Chloride (Sodium Chloride 0.9%) 1,000 mls @ 100 mls/hr IV .Q10H ONE Stop: 05/01/17 18:53 Last Admin: 05/01/17 09:44 Dose: 100 mls/hr Results - Vital Signs Recent Vital Signs: Last Vital Signs Temp 99.0 F 05/01/17 11:56 Pulse 84 05/01/17 12:10 Resp 19 05/01/17 11:56 BP 115/61 05/01/17 12:10 Pulse Ox 99 05/01/17 12:10 - Labs Result Diagrams: 05/01/17 09:42 05/01/17 09:42 Labs: Laboratory Results - last 24 hr 05/01/17 05/01/17 05/01/17 09:24 09:42 09:42 WBC 8.9 RBC 3.76 L Hgb 10.8 L Hct 32.5 L MCV 86.4 MCH 28.7 MCHC 33.2 RDW 13.0 Plt Count 247 MPV 8.9 Neut % (Auto) 72.8 Lymph % (Auto) 19.4 L [place] % (Auto) 5.2 Eos % (Auto) 1.8 Baso % (Auto) 0.8 Neut # 6.4 Lymph # 1.7 [place] # 0.5 Eos # 0.2 Baso # 0.1 PT 11.0 INR 1.0 APTT 28 Sodium Potassium Chloride Carbon Dioxide Anion Gap BUN Creatinine Est GFR ( Amer) Est GFR (Non-Af Amer) Random Glucose Calcium Total Bilirubin AST ALT Alkaline Phosphatase Total Protein Albumin Globulin Albumin/Globulin Ratio Urine Color Straw Urine Clarity Clear Urine pH 7.0 Ur Specific Rentz 1.002 L Urine Protein Negative Urine Glucose (UA) Normal Urine Ketones Trace Urine Blood Negative Urine Nitrate Negative Urine Bilirubin Negative Urine Urobilinogen Normal Ur Leukocyte Esterase 2+ H Urine WBC (Auto) 12 H Urine RBC (Auto) 1 Ur Squamous Epith Cells 8 H Urine Bacteria Rare 05/01/17 09:42 WBC RBC Hgb Hct MCV MCH MCHC RDW Plt Count MPV Neut % (Auto) Lymph % (Auto) [place] % (Auto) Eos % (Auto) Baso % (Auto) Neut # Lymph # [place] # Eos # Baso # PT INR APTT Sodium 134 Potassium 3.4 L Chloride 102 Carbon Dioxide 21 L Anion Gap 14 BUN 6 L Creatinine 0.4 L Est GFR ( Amer) > 60 Est GFR (Non-Af Amer) > 60 Random Glucose 72 Calcium 8.3 L Total Bilirubin 0.4 AST 43 H ALT 92 H D Alkaline Phosphatase 87 Total Protein 6.4 Albumin 3.1 L Globulin 3.2 Albumin/Globulin Ratio 1.0 Urine Color Urine Clarity Urine pH Ur Specific Rentz Urine Protein Urine Glucose (UA) Urine Ketones Urine Blood Urine Nitrate Urine Bilirubin Urine Urobilinogen Ur Leukocyte Esterase Urine WBC (Auto) Urine RBC (Auto) Ur Squamous Epith Cells Urine Bacteria Attending/Attestation - Attestation I have personally seen and examined this patient.: Yes I have fully participated in the care of the patient.: Yes I have reviewed all pertinent clinical information: Yes Notes (Text): 05/01/17 12:55 Pt was seen and examined at bedside on 05/01/17 Agree with above note and assessment Pt with Right breast abscess with cellulitis, possible benign lesion Repeat US of breast heart monitoring IV antibiotics Pt would need I & D of right breast and breast biopsy Consent, NPO, IVF Plan d.w pt in detail. Risk and benefit explained in detail.
--- NOTE | 2017-05-01 09:39 | C.PDOC ---
History Of Present Illness 26-year-old female, , 31 weeks , presents to the emergency department with complaints of right breast pain for the past several days. Patient was seen in ED a few days ago, and had I&D procedure with no product. Patient returns today for further evaluation due to persistent pain and swelling. Patient failed outpatient therapy. No other complaints Time Seen by Provider: 05/01/17 08:26 Chief Complaint (Nursing): Medical Clearance History Per: Patient History/Exam Limitations: no limitations Onset/Duration Of Symptoms: Days Current Symptoms Are (Timing): Still Present Severity: Moderate Past Medical History Reviewed: Historical Data, Nursing Documentation, Vital Signs Vital Signs: Last Vital Signs Temp 98.4 F 05/01/17 16:00 Pulse 75 05/01/17 16:00 Resp 18 05/01/17 16:00 BP 106/68 05/01/17 16:00 Pulse Ox 98 05/01/17 18:13 Surgical History: Cholecystectomy - [facility] Procedures INJECT RH IMMUNE GLOBUL (05/10/15) Family History: States: No Known Family Hx - Social History Hx Tobacco Use: Yes Hx Alcohol Use: No Hx Substance Use: No - Immunization History Hx Tetanus Toxoid Vaccination: No Hx Influenza Vaccination: Yes Hx Pneumococcal Vaccination: Yes Review Of Systems Except As Marked, All Systems Reviewed And Found Negative. Constitutional: Negative for: Fever, Chills Respiratory: Negative for: Shortness of Breath Gastrointestinal: Negative for: Nausea, Vomiting Genitourinary: Negative for: Vaginal Discharge, Vaginal Bleeding Musculoskeletal: Positive for: Other (pain to right breast) Physical Exam - Physical Exam Appears: Non-toxic, No Acute Distress Skin: Warm, Dry, No Rash Head: Atraumatic, Normacephalic Eye(s): bilateral: Normal Inspection, PERRL Nose: Normal Oral Mucosa: Moist Lips: Normal Appearing Neck: Normal ROM Chest: Other (right breast: there is a 1cm tender mass, indurated. No fluctuance.) Respiratory: Normal Breath Sounds, No Accessory Muscle Use Extremity: Normal ROM Neurological/Psych: Oriented x3, Normal Speech ED Course And Treatment - Laboratory Results Result Diagrams: 05/01/17 09:42 05/01/17 09:42 O2 Sat by Pulse Oximetry: 98 - CT Scan/US US OB Other Rad Studies (CT/US): Read By Radiologist, Radiology Report Reviewed CT/US Interpretation: Accession No. : [id number]. Patient Name / ID : MAHSA Price / [id number]. Exam Date : 05/01/2017 10:25:42 ( Approved ). Study Comment : Sex / Age : F / 26Y. Creator : ANN. MARY Dictator : Senior Caregiver : Hand Striper : ANN. MARY Approver2 : Report Date : 05/01/2017 12: 49:00. My Comment : . [facility]. [address] [place] [address]. Tel. no. . . . Patient Name: LJ BRAGG . Pt. Address: [address] [place] [address]. Rec #: [id number]. [place] [address]: Kanwal Walters Pt Phone: ( [phone] Order Location: [facility] : 1989 Female Age: 26 Order #: [id number]. Reason for exam: 31 weeks preg, pre op for R breast abscess. . . . . . Ultrasound. . . OB LTD/BIOPHYSICAL PROFILE Exam Date: 05/01/17. . This imaging exam was performed at [facility]. EXAM: US Biophysical Profile Without Non-Stress Testing. . CLINICAL HISTORY: 26 years old, female; Pain; Pain indication: Pelvic pain; ;. Additional info: 31 weeks preg, pre op for r breast abscess. . TECHNIQUE: Real-time ultrasound of the maternal pelvis for biophysical profile. evaluation with image documentation. . EXAM DATE/TIME: 05/01/2017 9: 36 AM. . COMPARISON: US - OB , LIMITED 02/12/2017 6:37:12 PM. . FINDINGS: There is a single live intrauterine fetus in cephalic presentation. Estimated gestational age is 30 weeks 4 days. Estimated due date is. 2016. Estimated gestational age by date is 31 weeks 2 days. Estimated. weight is 1573 g (3 lbs. 7 oz.), at approximately 15th percentile. . heart rate is 130 beats per minute. Placenta is posterior. Amniotic fluid. volume is normal, CASIE of 15.02. Cervix is not optimally visualized, appears. closed, measuring 2.8 cm in length. . BPD: 7.6 cm, 30 weeks 3 days. HC: 27.8 cm, 30 weeks 3 days. AC: 25.5 cm, 29 weeks 5 days. FL: 6.1 cm, 31 weeks 4 days. . The visualized parts include kidneys, fluid filled stomach and bladder,. 3 vessel cord and midline incision. S/D ratio is normal at 2.4. . Biophysical profile was performed with following scores: . tone 2. breathing 2. movements 2. Amniotic fluid 2. . Total score is 8 of 8. . IMPRESSION: 1. Single live intrauterine fetus at 30 weeks 4 days. 2. Normal biophysical profile score. . . Dictated By: Love Perez. Dictated Date/Time: 05/01/171248. Signed By: MD Love Perez. Date Signed: 05/01/171248. Transcribed By: Insight Guru. Transcribe Date/Time: 05/01/171248. AATP02/MT US BREAST Other Rad Studies (CT/US): Read By Radiologist, Radiology Report Reviewed CT/US Interpretation: Accession No. : [id number]. Patient Name / ID : MAHSA Price / [id number]. Exam Date : 05/01/2017 10:15:28 ( Approved ). Study Comment : Sex / Age : F / 26Y. Creator : Mati Gallardo MD. Dictator : Mati Gallardo MD. Senior Caregiver : Hand Striper : Mati Gallardo MD. Approver2 : Report Date : 05/01/2017 11:03:51. My Comment : . PROCEDURE : Diagnostic right breast ultrasound examination. HISTORY: right breast abscess eval, pre-op. COMPARISON: 04/28/2017. TECHNIQUE: Targeted examination 1 o'clock periareolar right breast corresponding to palpable abnormality. FINDINGS: In the 1 o'clock axis of the right breast, periareolar , there is a hypoechoic irregular structure, likely complex fluid collection, measuring 3.8 x 1.1 x 3.3 cm. In comparison to the recent prior examination of 2016, the collection has increased mildly in size. Previously, it measured 1.1 x 3.3 x 3.5 cm. Peripheral hypervascularity seen on prior examination is questionably present on current examination. There is a small amount of vascularity seen within this structure, as on prior examination. This raises the possibility that there are either vascular septations through this collection, or less likely, that this represents a neoplastic process. IMPRESSION: Hypoechoic irregular structure in 1 o'clock axis right breast corresponding to area of palpable abnormality. Vaguely tubular in shape extending towards the nipple. Slightly increased in size from 04/28/2017. Only mild peripheral hypervascularity. Small amount of flow is demonstrated within this structure. Likely abscess, possibly intraductal. Possible vascular septations. Less likely, neoplastic process. Recommend aspiration/excision. Discussion with the surgeon following this examination revealed that surgical excision is planned for today. BIRADS 4 Suspicious finding. Recommendation: Biopsy is recommended. Medical Decision Making Medical Decision Making: The patient was evaluated by surgical scrub technologist who state they will take the patient to the OR after OB consult and bio-physical of the . Dr. Lomeli ([facility] who performed FHT with heart rate in the 140's. Will send the patient for bio-physical profile. Case was discussed with Dr. Hinds who has evaluated the patient at bedside and agrees to take the patient to the OR. Disposition - Disposition Disposition: HOSPITALIZED Disposition Time: 10:00 Condition: GOOD - Clinical Impression Clinical Impression: Breast abscess - PA / SHAKER REPAIRER / Resident Statement MD/DO has reviewed & agrees with the documentation as recorded. - Scribe Statement The provider has reviewed the documentation as recorded by the Scribe (Zunaira Supa) All medical record entries made by the Scribe were at my direction and personally dictated by me. I have reviewed the chart and agree that the record accurately reflects my personal performance of the history, physical exam, medical decision making, and the department course for this patient. I have also personally directed, reviewed, and agree with the discharge instructions and disposition.
[2017-05-01] MEDS ORDERED: Bupivacaine HCl 0.25% PF (10 ml) Inj ONE ×2 (09:44)
[2017-05-01] MEDS ORDERED: Lidocaine 2% w Epi 1:100,000 Inj IJ ONE (09:44)
[2017-05-01 09:46] LABS: BASO # 0.1 K/uL (0.0-0.2); BASO % 0.8 % (0.0-2.0); EOS # 0.2 K/uL (0.0-0.7); EOS % 1.8 % (0.0-4.0); HEMATOCRIT 32.5 % (34.0-47.0); LYMPH # 1.7 K/uL (1.0-4.3); LYMPH % 19.4 % (20.0-40.0); MEAN CELL VOLUME 86.4 fL (81.0-99.0); MEAN CORPUSCULAR HEMOGLOBIN 28.7 pg (27.0-31.0); MEAN CORPUSCULAR HGB CONC 33.2 g/dL (33.0-37.0); MEAN PLATELET VOLUME 8.9 fL (7.2-11.7); MONO # 0.5 K/uL (0.0-0.8); MONO % 5.2 % (0.0-10.0); WHITE BLOOD COUNT 8.9 K/uL (4.8-10.8)
[2017-05-01 09:53] LABS: CHLORIDE 102 mmol/L (98-107); POTASSIUM 3.4 mmol/L (3.6-5.2); SODIUM 134 mmol/L (132-148)
[2017-05-01 09:56] LABS: ALKALINE PHOSPHATASE 87 U/L (38-126); ALT/SGPT 92 U/L (9-52); AST/SGOT 43 U/L (14-36); BILIRUBIN,TOTAL 0.4 mg/dL (0.2-1.3); BLOOD UREA NITROGEN 6 mg/dL (7-17); CARBON DIOXIDE 21 mmol/L (22-30); GFR AFRICAN-AMERICAN > 60; GLUCOSE,RANDOM 72 mg/dL (65-105); TOTAL PROTEIN 6.4 g/dL (6.3-8.3)
[2017-05-01 09:57] LABS: CALCIUM 8.3 mg/dl (8.6-10.4)
--- NOTE | 2017-05-01 09:59 | CP.PCM.CON ---
History of Present Illness - History of Present Illness History of Present Illness: Asked by Dr. Billy to see patient: 31 weeks - for I&D of right breast abscess. Patient received on stretcher, in E.D. Bed#2, in good spirits 26 yo , LMP 09/24/16, DANIELLE 07/01/17, EGA 31 weeks 2 days for I&D of right breast abscess under general anesthesia. Patient presented c/o right breast mass and pain x 4 days with discharge from nipple. (+) AFM; denies leakage of fluid, vaginal bleeding or contractions. Last had sexual intercourse 02/2017. care: [facility]. Last visit 1 week ago; missed appointment - due to right breast pain; has been rescheduled for next week. issues: UTI x 2; denies any other complications P [place]: x 3, all full [place] [facility] [place]. [place] , [place] 6[place] 7[place] [facility] [place]. [place], female, 5lb 1oz, [facility] noted for (mild) pre-eclampsia. 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 "I just started back up, due to the stress". Denies illicit drug or EtOH use. With FOB x 2 years; engaged. Fam Hx: Mother alive 46 - undisclosed "mental" problems. Father alive 47 yo - no med issues. No known fam h/o cancer Past Patient History - Infectious Disease Hx of Infectious Diseases: None - Past Social History Smoking Status: Heavy Smoker > 10 Cigarettes Daily Drugs: Denies - CARDIAC Hx Cardiac Disorders: Yes Hx Hypertension: Yes (gestational, 2012) - PULMONARY Hx Respiratory Disorders: No Hx Tuberculosis: No - NEUROLOGICAL Hx Neurological Disorder: No Hx Seizures: No - HEENT Hx HEENT Problems: No - RENAL Hx Chronic Kidney Disease: No - ENDOCRINE/METABOLIC Hx Endocrine Disorders: No - HEMATOLOGICAL/ONCOLOGICAL Hx Blood Disorders: No Hx Human Immunodeficiency Virus (HIV): No - INTEGUMENTARY Hx Dermatological Problems: No - MUSCULOSKELETAL/RHEUMATOLOGICAL Hx Musculoskeletal Disorders: No - GASTROINTESTINAL Hx Gastrointestinal Disorders: Yes Hx Gall Bladder Disease: Yes (2006) - GENITOURINARY/GYNECOLOGICAL Hx Genitourinary Disorders: Yes Hx Sexually Transmitted Disorders: No Hx Urinary Tract Infection: Yes LMP:: 09/24/2016 : 6 Para: 3 Termination of : 2 - PSYCHIATRIC Hx Psychophysiologic Disorder: No Hx Substance Use: No - SURGICAL HISTORY Hx Surgeries: Yes Hx Cholecystectomy: Yes (2006) Hx Dilation and Curettage: Yes (2015) - ANESTHESIA Hx Anesthesia: Yes Hx Anesthesia Reactions: No Meds Allergies/Adverse Reactions: Allergies Allergy/AdvReac Type Severity Reaction Status Date / Time No Known Allergies Allergy Verified 05/01/17 08:20 - Medications Medications: Current Medications Sodium Chloride (Sodium Chloride 0.9%) 1,000 mls @ 100 mls/hr IV .Q10H ONE Stop: 05/01/17 18:53 Last Admin: 05/01/17 09:44 Dose: 100 mls/hr Physical Exam - Constitutional Appears: Well, No Acute Distress - Head Exam Head Exam: NORMAL INSPECTION - Eye Exam Eye Exam: Normal appearance - ENT Exam ENT Exam: Mucous Membranes Moist - Neck Exam Neck exam: Positive for: Normal Inspection - Respiratory Exam Respiratory Exam: NORMAL BREATHING PATTERN - Cardiovascular Exam Cardiovascular Exam: REGULAR RHYTHM - GI/Abdominal Exam GI & Abdominal Exam: Soft Additional comments: Gravid, soft, non tender. FHR auscultated, RLQ, 144 bpm - Extremities Exam Extremities exam: Positive for: normal inspection - Back Exam Back exam: NORMAL INSPECTION - Neurological Exam Neurological exam: Alert, Oriented x3 - Psychiatric Exam Psychiatric exam: Normal Affect, Normal Mood - Skin Skin Exam: Dry, Intact (Breasts: large, symmetric. Right breast - tender mass, 10:00 axis. No skin changes), Normal Color, Warm Results - Vital Signs Recent Vital Signs: Last Vital Signs Temp 98.6 F 05/01/17 08:14 Pulse 99 H 05/01/17 08:14 Resp 18 05/01/17 08:14 BP 105/71 05/01/17 08:14 Pulse Ox 98 05/01/17 09:39 - Labs Result Diagrams: 05/01/17 09:42 05/01/17 09:42 Assessment & Plan - Assessment and Plan (Free Text) Assessment: 26 yo [id number], 31w 2d, right breast abscess for I&D. FHR noted. Patient is clinically stable. Cleared from Ob for anticipated procedure Plan: 1) Ob ultrasound with BPP, now (if possible); or after surgery, if case is called 2) For prolonged monitoring (NST) after procedure 3) Discharge, to be determined by and as per primary (surgical) team. If NST is reactive, no indication for admission, from Ob perspective. Addendum: 1430 Patient was evaluated at approximately 1340 hours, while in PACU. At that time, patient reported (+) AFM; denied any abdominal pain/cramps/ contractions. Reviewed with patient results of Ob ultrasound: noted for cephalic presentation , EFW 1573 grams; BPS 8/8. NST reactive (baseline 145 bpm). Patient clinically stable. Plan: 1) Anticipate discharge home per General Surgery 2) Keep appointment for next week 3) Reviewed S/S PTL 4) Take all medications as prescribed; continue vitamins Thank you for the pleasure of this consultation - Date & Time Date: 05/01/17 Time: 09:45
[2017-05-01] MEDS ORDERED: Bupivacaine/Epi 0.25%-1:200,000 10 ml PF inj IJ ONE ×2 (10:29→10:30)
[2017-05-01 10:39] LABS: RBC URINE 1 /hpf (0-3); URINE BACTERIA RARE (<OCC); URINE BILIRUBIN NEGATIVE (NEGATIVE); URINE BLOOD NEGATIVE (NEGATIVE); URINE COLOR Straw (YELLOW); URINE GLUCOSE (UA) NORMAL (Normal); URINE KETONE TRACE mg/dL (NEGATIVE); URINE LEUKOCYTE ESTERASE 2+ Leu/uL (Negative); URINE PROTEIN NEGATIVE (NEGATIVE); URINE UROBILINOGEN NORMAL mg/dL (0.2-1.0); WBC URINE 12 /hpf (0-5)
[2017-05-01] MEDS ORDERED: ceFAZolin IV 2 gm in Dextrose 1 GM/50 ML BAG IVPB ONE (11:05)
--- NOTE | 2017-05-01 11:05 | US ---
PROCEDURE: Diagnostic right breast ultrasound examination HISTORY: right breast abscess eval, pre-op COMPARISON: 04/28/2017 TECHNIQUE: Targeted examination 1 o'clock periareolar right breast corresponding to palpable abnormality FINDINGS: In the 1 o'clock axis of the right breast, periareolar, there is a hypoechoic irregular structure, likely complex fluid collection, measuring 3.8 x 1.1 x 3.3 cm. In comparison to the recent prior examination of 2016, the collection has increased mildly in size. Previously, it measured 1.1 x 3.3 x 3.5 cm. Peripheral hypervascularity seen on prior examination is questionably present on current examination. There is a small amount of vascularity seen within this structure, as on prior examination. This raises the possibility that there are either vascular septations through this collection, or less likely, that this represents a neoplastic process. IMPRESSION: Hypoechoic irregular structure in 1 o'clock axis right breast corresponding to area of palpable abnormality. Vaguely tubular in shape extending towards the nipple. Slightly increased in size from 04/28/2017. Only mild peripheral hypervascularity. Small amount of flow is demonstrated within this structure. Likely abscess, possibly intraductal. Possible vascular septations. Less likely, neoplastic process. Recommend aspiration/excision. Discussion with the surgeon following this examination revealed that surgical excision is planned for today. BIRADS 4 Suspicious finding Recommendation: Biopsy is recommended.
[2017-05-01] MEDS ORDERED: Sodium Bicarbonate (8.4%) 50 Meq Syringe ONE ×2 (11:14→11:26)
--- NOTE | 2017-05-01 11:58 | PCM.SURG1 ---
<Sarbjit Saleh - Last Filed: 05/01/17 11:56> Surgeon's Initial Post Op Note - Surgeon's Notes Surgeon: Guzman Pathology Tech: Therese Pre-Operative Diagnosis: right breast abscess Operative Findings: right breast abscess, pus Post-Operative Diagnosis: right breast abscess Operation Performed: incision and drainage of right breast abscess Specimen/Specimens Removed: pus, abscess wall, breast tissue Estimated Blood Loss: EBL {In ML}: 5 Date of Surgery/Procedure: 05/01/17 Time of Surgery/Procedure: 11:00 <Antonio Hinds - Last Filed: 05/01/17 12:29> Surgeon's Initial Post Op Note - Surgeon's Notes Operation Performed: 1. Incision and Drainage of Right Breast Abscess, Multiloculated. 2. Right breast biopsy
--- NOTE | 2017-05-01 12:50 | US ---
EXAM: US Biophysical Profile Without Non-Stress Testing CLINICAL HISTORY: 26 years old, female; Pain; Pain indication: Pelvic pain; ; Additional info: 31 weeks preg, pre op for r breast abscess TECHNIQUE: Real-time ultrasound of the maternal pelvis for biophysical profile evaluation with image documentation. EXAM DATE/TIME: 05/01/2017 9:36 AM COMPARISON: US - OB , LIMITED 02/12/2017 6:37:12 PM FINDINGS: There is a single live intrauterine fetus in cephalic presentation. Estimated gestational age is 30 weeks 4 days. Estimated due date is 07/06/2017. Estimated gestational age by date is 31 weeks 2 days. Estimated weight is 1573 g (3 lbs. 7 oz.), at approximately 15th percentile. heart rate is 130 beats per minute. Placenta is posterior. Amniotic fluid volume is normal, CASIE of 15.02. Cervix is not optimally visualized, appears closed, measuring 2.8 cm in length. BPD: 7.6 cm, 30 weeks 3 days HC: 27.8 cm, 30 weeks 3 days AC: 25.5 cm, 29 weeks 5 days FL: 6.1 cm, 31 weeks 4 days The visualized parts include kidneys, fluid filled stomach and bladder, 3 vessel cord and midline incision. S/D ratio is normal at 2.4. Biophysical profile was performed with following scores: tone 2 breathing 2 movements 2 Amniotic fluid 2 Total score is 8 of 8. IMPRESSION: 1. Single live intrauterine fetus at 30 weeks 4 days. 2. Normal biophysical profile score.
--- NOTE | 2017-05-01 12:51 | CP.PCM.HP ---
<Sarbjit Saleh - Last Filed: 05/01/17 12:51> History of Present Illness - History of Present Illness History of Present Illness: SURGERY H&P NOTE FOR DR. HINDS 26F presents to [facility] with right breast abscess that shes states began 4 days ago. She admits to pain on palpation, denies fevers, chills, nausea or vomiting. Patient states she noticed discharged from the right breast nipple, she states the discharge is white in color and likely purulent. She is currently 31 weeks . PMH: denies PSH: Cholecystectomy Social: smokes tobacco, denies alcohol, denies illicit drugs Allergies: NKDA Present on Admission - Present on Admission Any Indicators Present on Admission: Yes Past Patient History - Infectious Disease Hx of Infectious Diseases: None - Past Social History Smoking Status: Heavy Smoker > 10 Cigarettes Daily Drugs: Denies - CARDIAC Hx Hypertension: No - PULMONARY Hx Respiratory Disorders: No Hx Tuberculosis: No - NEUROLOGICAL Hx Seizures: No - HEENT Hx HEENT Problems: No - RENAL Hx Chronic Kidney Disease: No - ENDOCRINE/METABOLIC Hx Endocrine Disorders: No - HEMATOLOGICAL/ONCOLOGICAL Hx Human Immunodeficiency Virus (HIV): No - INTEGUMENTARY Hx Dermatological Problems: No - MUSCULOSKELETAL/RHEUMATOLOGICAL Hx Musculoskeletal Disorders: No - GASTROINTESTINAL Hx Gastrointestinal Disorders: Yes Hx Gall Bladder Disease: Yes (2006) - GENITOURINARY/GYNECOLOGICAL Hx Sexually Transmitted Disorders: No - PSYCHIATRIC Hx Substance Use: No - SURGICAL HISTORY Hx Cholecystectomy: Yes - ANESTHESIA Hx Anesthesia: Yes Hx Anesthesia Reactions: No Meds Allergies/Adverse Reactions: Allergies Allergy/AdvReac Type Severity Reaction Status Date / Time No Known Allergies Allergy Verified 05/01/17 08:20 Physical Exam - Constitutional Appears: Non-toxic, No Acute Distress - Head Exam Head Exam: ATRAUMATIC - Eye Exam Eye Exam: EOMI, PERRL - ENT Exam ENT Exam: Mucous Membranes Moist - Respiratory Exam Respiratory Exam: Clear to Auscultation Bilateral, NORMAL BREATHING PATTERN - Cardiovascular Exam Cardiovascular Exam: REGULAR RHYTHM, +S1, +S2 - GI/Abdominal Exam GI & Abdominal Exam: Distended, Soft. absent: Firm, Guarding, Rebound, Rigid, Tenderness Additional comments: abdomen - Extremities Exam Extremities exam: Negative for: pedal edema, tenderness - Neurological Exam Neurological exam: Alert, Oriented x3 - Psychiatric Exam Psychiatric exam: Normal Affect, Normal Mood - Skin Skin Exam: Dry, Intact, Normal Color, Warm Additional comments: right breast mass above nipple, tender to touch, warm to touch. no discharge noted Results - Vital Signs Recent Vital Signs: Last Vital Signs Temp 99.0 F 05/01/17 11:56 Pulse 84 05/01/17 12:10 Resp 19 05/01/17 11:56 BP 115/61 05/01/17 12:10 Pulse Ox 99 05/01/17 12:10 - Labs Result Diagrams: 05/01/17 09:42 05/01/17 09:42 Labs: Laboratory Results - last 24 hr 05/01/17 05/01/17 05/01/17 09:24 09:42 09:42 WBC 8.9 RBC 3.76 L Hgb 10.8 L Hct 32.5 L MCV 86.4 MCH 28.7 MCHC 33.2 RDW 13.0 Plt Count 247 MPV 8.9 Neut % (Auto) 72.8 Lymph % (Auto) 19.4 L [place] % (Auto) 5.2 Eos % (Auto) 1.8 Baso % (Auto) 0.8 Neut # 6.4 Lymph # 1.7 Tom[place]kins # 0.5 Eos # 0.2 Baso # 0.1 PT 11.0 INR 1.0 APTT 28 Sodium Potassium Chloride Carbon Dioxide Anion Gap BUN Creatinine Est GFR ( Amer) Est GFR (Non-Af Amer) Random Glucose Calcium Total Bilirubin AST ALT Alkaline Phosphatase Total Protein Albumin Globulin Albumin/Globulin Ratio Urine Color Straw Urine Clarity Clear Urine pH 7.0 Ur Specific [place] 1.002 L Urine Protein Negative Urine Glucose (UA) Normal Urine Ketones Trace Urine Blood Negative Urine Nitrate Negative Urine Bilirubin Negative Urine Urobilinogen Normal Ur Leukocyte Esterase 2+ H Urine WBC (Auto) 12 H Urine RBC (Auto) 1 Ur Squamous Epith Cells 8 H Urine Bacteria Rare 05/01/17 09:42 WBC RBC Hgb Hct MCV MCH MCHC RDW Plt Count MPV Neut % (Auto) Lymph % (Auto) [place] % (Auto) Eos % (Auto) Baso % (Auto) Neut # Lymph # [place] # Eos # Baso # PT INR APTT Sodium 134 Potassium 3.4 L Chloride 102 Carbon Dioxide 21 L Anion Gap 14 BUN 6 L Creatinine 0.4 L Est GFR ( Amer) > 60 Est GFR (Non-Af Amer) > 60 Random Glucose 72 Calcium 8.3 L Total Bilirubin 0.4 AST 43 H ALT 92 H D Alkaline Phosphatase 87 Total Protein 6.4 Albumin 3.1 L Globulin 3.2 Albumin/Globulin Ratio 1.0 Urine Color Urine Clarity Urine pH Ur Specific [place] Urine Protein Urine Glucose (UA) Urine Ketones Urine Blood Urine Nitrate Urine Bilirubin Urine Urobilinogen Ur Leukocyte Esterase Urine WBC (Auto) Urine RBC (Auto) Ur Squamous Epith Cells Urine Bacteria Assessment & Plan - Assessment and Plan (Free Text) Assessment: 26F with right breast abscess Plan: - OBGYN consult for evaluation - Ultrasound of right breast - Booked and consented for incision and drainage of right breast abscess Discussed with Dr. Guzman Saleh, PGY1 <Antonio Hinds - Last Filed: 05/01/17 13:03> Results - Vital Signs Recent Vital Signs: Last Vital Signs Temp 99.0 F 05/01/17 11:56 Pulse 84 05/01/17 12:10 Resp 19 05/01/17 11:56 BP 115/61 05/01/17 12:10 Pulse Ox 99 05/01/17 12:10 - Labs Result Diagrams: 05/01/17 09:42 05/01/17 09:42 Labs: Laboratory Results - last 24 hr 05/01/17 05/01/17 05/01/17 09:24 09:42 09:42 WBC 8.9 RBC 3.76 L Hgb 10.8 L Hct 32.5 L MCV 86.4 MCH 28.7 MCHC 33.2 RDW 13.0 Plt Count 247 MPV 8.9 Neut % (Auto) 72.8 Lymph % (Auto) 19.4 L [place] % (Auto) 5.2 Eos % (Auto) 1.8 Baso % (Auto) 0.8 Neut # 6.4 Lymph # 1.7 [place]kins # 0.5 Eos # 0.2 Baso # 0.1 PT 11.0 INR 1.0 APTT 28 Sodium Potassium Chloride Carbon Dioxide Anion Gap BUN Creatinine Est GFR ( Amer) Est GFR (Non-Af Amer) Random Glucose Calcium Total Bilirubin AST ALT Alkaline Phosphatase Total Protein Albumin Globulin Albumin/Globulin Ratio Urine Color Straw Urine Clarity Clear Urine pH 7.0 Ur Specific [place] 1.002 L Urine Protein Negative Urine Glucose (UA) Normal Urine Ketones Trace Urine Blood Negative Urine Nitrate Negative Urine Bilirubin Negative Urine Urobilinogen Normal Ur Leukocyte Esterase 2+ H Urine WBC (Auto) 12 H Urine RBC (Auto) 1 Ur Squamous Epith Cells 8 H Urine Bacteria Rare 05/01/17 09:42 WBC RBC Hgb Hct MCV MCH MCHC RDW Plt Count MPV Neut % (Auto) Lymph % (Auto) [place] % (Auto) Eos % (Auto) Baso % (Auto) Neut # Lymph # [place] # Eos # Baso # PT INR APTT Sodium 134 Potassium 3.4 L Chloride 102 Carbon Dioxide 21 L Anion Gap 14 BUN 6 L Creatinine 0.4 L Est GFR ( Amer) > 60 Est GFR (Non-Af Amer) > 60 Random Glucose 72 Calcium 8.3 L Total Bilirubin 0.4 AST 43 H ALT 92 H D Alkaline Phosphatase 87 Total Protein 6.4 Albumin 3.1 L Globulin 3.2 Albumin/Globulin Ratio 1.0 Urine Color Urine Clarity Urine pH Ur Specific [place] Urine Protein Urine Glucose (UA) Urine Ketones Urine Blood Urine Nitrate Urine Bilirubin Urine Urobilinogen Ur Leukocyte Esterase Urine WBC (Auto) Urine RBC (Auto) Ur Squamous Epith Cells Urine Bacteria Attending/Attestation - Attestation I have personally seen and examined this patient.: Yes I have fully participated in the care of the patient.: Yes I have reviewed all pertinent clinical information: Yes Notes (Text): 05/01/17 13:03 Pt was seen and examined at bedside on 05/01/17 Agree with above note and assessment Pt with Right breast abscess with cellulitis, possible benign lesion Repeat US of breast heart monitoring IV antibiotics Pt would need I & D of right breast and breast biopsy Consent, NPO, IVF Plan d.w pt in detail. Risk and benefit explained in detail.
[2017-05-01 13:37] VITALS: RESP 18
[2017-05-01 14:01] VITALS: TEMP 98.4
--- NOTE | 2017-05-01 14:22 | OP ---
PROCEDURE DATE: 05/01/2017 PREOPERATIVE DIAGNOSES: Right breast abscess and cellulitis, possible right breast benign lesion. POSTOPERATIVE DIAGNOSES: 1. Right breast abscess. 2. 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 PROCEDURES DONE: 1. Incision and drainage of right breast abscess. 2. Right breast biopsy, open. SURGEON: Antonio Hinds MD. GEOGRAPHIC INFORMATION SYSTEM ANALYST: Gurmeet Saleh, PGY-1 resident. ANESTHESIA: Local anesthesia with stand-by monitoring anesthesia. ESTIMATED BLOOD LOSS: Around 10 mL. DRAINS: None. PATHOLOGY: The pus was sent for the culture and sensitivity, and the right breast biopsy pus was sen t for permanent. COMPLICATIONS: None. INTRAOPERATIVE FINDINGS: The patient had multiloculated abscess with changes of chronic granulomatou s mastitis. INTRAOPERATIVE STEPS: This is a 26-year-old female who was diagnosed with right breast abscess with possible right breast mass, and patient was consented for the incision and drainage of right breast a bscess with possible biopsy. Brought to the OR, placed supine on the operating table and, after prep ping and draping the right breast, the local anesthesia was injected and a transverse 4 cm incision w as made. After incising skin and subcutaneous tissue, the abscess cavity was entered and patient fou nd to have multiloculated abscess and all of the abscess cavity was drained and the abscess cavity wa s drained, and the patient found to have thickened edematous tissue surrounding the abscess cavity th at was completely excised, and it was sent for the breast biopsy. After complete excision of the thi ckened edematous tissue, the cavity was irrigated, hemostasis was achieved and packed with iodoform p acking, and dry sterile dressing was applied. The patient tolerated the procedure well. Count of in struments and gauze was correct. There was no apparent complication. Antonio Hinds MD cc: [id number] TT: 05/01/2017 14:21:31 pr
[2017-05-01 16:27] VITALS: BP 106/68; PULSE 75
[2017-05-01 18:13] VITALS: O2SAT 98
--- NOTE | 2017-05-02 22:24 | CARD ---
APPROVED REPORT EKG Measurement Heart [id number] <Conclusion> Normal sinus rhythm with sinus arrhythmia Normal ECG
== END 2017-05-01 16:10 | disposition home or self-care (01) ==
LOC: C.ER 08:02 → C.SDS 08:02 → C.ER 10:46 → C.SDS 11:08
PROVIDERS: ATTEND Surgery Surgical Critical Care
DX: N61.1 Abscess of the breast and nipple (principal); N63 Unspecified lump in breast
CPT/HCPCS: 19120; 76641; 76815; 76818; 80053; 81001; 85025; 85610; 85730; 87070; 87181; 88305; 93005; 99285; J0690; J7040

== ENCOUNTER 2017-05-02 13:31 | Emergency (ER) | payer OTHER ==
[2017-05-02 13:31] VITALS: BMI 33.0
[2017-05-02 13:36] VITALS: BP 102/69; PULSE 94; TEMP 98.3; O2SAT 98
--- NOTE | 2017-05-02 14:02 | C.PDOC ---
History Of Present Illness 26 y/o F presents for packing removal. Patient was here yesterday with breast abscess, went to OR for I&D. Also and had monitoring performed. She states she was called today to return for packing removal. She denies any complaints. Time Seen by Provider: 05/02/17 13:40 Chief Complaint (Nursing): Abnormal Skin Integrity Past Medical History Vital Signs: Last Vital Signs Temp 98.3 F 05/02/17 13:34 Pulse 94 H 05/02/17 13:34 Resp 18 05/02/17 13:34 BP 102/69 05/02/17 13:34 Pulse Ox 98 05/02/17 14:02 - Medical History PMH: Gall Bladder Disease (2006), HTN (gestational, 2012) Denies: Diabetes, Hepatitis, HIV, Chronic Kidney Disease, Seizures, Sexually Transmitted Disease Surgical History: Cholecystectomy (2006) - [facility] Procedures INJECT RH IMMUNE GLOBUL (05/10/15) Family History: States: Unknown Family Hx - Social History Hx Tobacco Use: Yes Hx Alcohol Use: No Hx Substance Use: No - Immunization History Hx Tetanus Toxoid Vaccination: No Hx Influenza Vaccination: Yes Hx Pneumococcal Vaccination: Yes Review Of Systems Except As Marked, All Systems Reviewed And Found Negative. Constitutional: Negative for: Fever Respiratory: Negative for: Shortness of Breath Physical Exam - Physical Exam Appears: No Acute Distress Head: Normacephalic Oral Mucosa: Moist Cardiovascular: Rhythm Regular Respiratory: No Accessory Muscle Use Neurological/Psych: Normal Speech, Normal Cognition Gait: Steady ED Course And Treatment O2 Sat by Pulse Oximetry: 98 Medical Decision Making Medical Decision Making: Surgery resident paged, unpacked and repacked wound. Patient will return Thursday. Disposition - Disposition Disposition: HOME/ ROUTINE Disposition Time: 15:38 Condition: STABLE Prescriptions: Clindamycin [Cleocin] 300 mg PO Q6 #20 cap Instructions: Abscess Incision and Drainage (ED) - Clinical Impression Clinical Impression: Abscess
--- NOTE | 2017-05-02 15:34 | CP.PCM.CON ---
History of Present Illness - History of Present Illness History of Present Illness: Surgery: Dr. Hinds CC: Breast Abscess HPI: 26F s/p I&D of breast abscess presents for packing change. Pt has mild breast discomfort. Otherwise no complaints. Review of Systems - Review of Systems All systems: reviewed and no additional remarkable complaints except (HPI) Past Patient History - Infectious Disease Hx of Infectious Diseases: None - Past Social History Smoking Status: Heavy Smoker > 10 Cigarettes Daily - CARDIAC Hx Hypertension: Yes (2012) - PULMONARY Hx Respiratory Disorders: No Hx Tuberculosis: No - NEUROLOGICAL Hx Seizures: No - HEENT Hx HEENT Problems: No - RENAL Hx Chronic Kidney Disease: No - ENDOCRINE/METABOLIC Hx Endocrine Disorders: No - HEMATOLOGICAL/ONCOLOGICAL Hx Human Immunodeficiency Virus (HIV): No - INTEGUMENTARY Hx Dermatological Problems: No - MUSCULOSKELETAL/RHEUMATOLOGICAL Hx Musculoskeletal Disorders: No - GASTROINTESTINAL Hx Gall Bladder Disease: Yes (2006) - GENITOURINARY/GYNECOLOGICAL Hx Sexually Transmitted Disorders: No - PSYCHIATRIC Hx Substance Use: No - SURGICAL HISTORY Hx Cholecystectomy: Yes (2006) - ANESTHESIA Hx Anesthesia: Yes Hx Anesthesia Reactions: No Meds Allergies/Adverse Reactions: Allergies Allergy/AdvReac Type Severity Reaction Status Date / Time No Known Allergies Allergy Verified 05/02/17 13:42 Physical Exam - Skin Additional comments: R breast s/p I&D, tender to palpation, no fluctuance or drainage, no pus Results - Vital Signs Recent Vital Signs: Last Vital Signs Temp 98.3 F 05/02/17 13:34 Pulse 94 H 05/02/17 13:34 Resp 18 05/02/17 13:34 BP 102/69 05/02/17 13:34 Pulse Ox 98 05/02/17 14:02 Assessment & Plan - Assessment and Plan (Free Text) Assessment: 26F s/p ID of R breast abscess, POD#1 -Packing changed in ED -Pt is to return Thursday for another packing change -pt misplaced abx rx, will give new rx for clindamycin -d/w attending Zemaitis PGY2
[2017-05-02] MEDS ORDERED: Bacitracin 500 Units/gm Oint Foilpak UD ONE (15:47)
[2017-05-02 15:54] VITALS: RESP 20
== END 2017-05-02 15:53 | disposition home or self-care (01) ==
LOC: C.ER 13:31
DX: N61.1 Abscess of the breast and nipple (principal)

== ENCOUNTER 2018-08-13 12:30 | Emergency (ER) | payer OTHER ==
[2018-08-13 12:30] VITALS: BMI 33.0
[2018-08-13 13:15] VITALS: BP 120/85; PULSE 71; RESP 20; TEMP 98.7; O2SAT 100
[2018-08-13 14:59] LABS: HCG,QUALITATIVE URINE NEGATIVE (NEGATIVE)
[2018-08-13 15:01] LABS: SQUAMOUS EPITHIAL < 1 /hpf (0-5); URINE BILIRUBIN NEGATIVE (NEGATIVE); URINE BLOOD NEGATIVE (NEGATIVE); URINE CLARITY Hazy (Clear); URINE COLOR Amber (YELLOW); URINE GLUCOSE (UA) NORMAL (Normal); URINE LEUKOCYTE ESTERASE NEG Leu/uL (Negative); URINE PROTEIN NEGATIVE (NEGATIVE)
--- NOTE | 2018-08-13 15:26 | C.PDOC ---
History Of Present Illness 28 year old female who is s/p termination of one month ago, presents to the ED for evaluation of vaginal spotting and sensation fullness to her suprapubic area. Patient states states she followed up in [facility] a few weeks after the termination and underwent an ultrasound done at this time. Patient also reports urinary frequency and complains of foul-smelling discharge. She denies fever, chills, nausea, vomiting, dysuria. Time Seen by Provider: 08/13/18 13:43 Chief Complaint (Nursing): Abdominal Pain History Per: Patient History/Exam Limitations: no limitations Current Symptoms Are (Timing): Still Present Location Of Pain/Discomfort: Suprapubic Quality Of Discomfort: Other (fullness ) Associated Symptoms: Other (urinary frequency ). denies: Fever, Chills, Nausea, Vomiting, Urinary Symptoms (dysuria ) Additional History Per: Patient Past Medical History Reviewed: Historical Data, Nursing Documentation, Vital Signs Vital Signs: Last Vital Signs Temp 98.7 F 08/13/18 13:08 Pulse 71 08/13/18 13:08 Resp 20 08/13/18 13:08 BP 120/85 08/13/18 13:08 Pulse Ox 100 08/13/18 13:08 - Medical History PMH: Gall Bladder Disease (2006), HTN (gestational, 2013) Denies: Diabetes, Hepatitis, HIV, Chronic Kidney Disease, Seizures, Sexually Transmitted Disease Surgical History: Cholecystectomy (2006), Endoscopy - [facility] Procedures INJECT RH IMMUNE GLOBUL (05/10/15) Family History: States: Unknown Family Hx - Social History Hx Tobacco Use: Yes Hx Alcohol Use: Yes Hx Substance Use: No - Immunization History Hx Tetanus Toxoid Vaccination: Yes Hx Influenza Vaccination: No Hx Pneumococcal Vaccination: No Review Of Systems Constitutional: Negative for: Fever, Chills Gastrointestinal: Positive for: Other (suprapubic fullness ). Negative for: Nausea, Vomiting Genitourinary: Positive for: Frequency (urinary ), Other (vaginal spotting ). Negative for: Dysuria Physical Exam - Physical Exam Appears: Non-toxic, No Acute Distress, Other (obese ) Skin: Normal Color, Warm, Dry Head: Atraumatic, Normacephalic Eye(s): bilateral: Normal Inspection Oral Mucosa: Moist Neck: Supple Chest: Symmetrical, No Deformity, No Tenderness Cardiovascular: Rhythm Regular, No Murmur Respiratory: Normal Breath Sounds, No Rales, No Rhonchi, No Wheezing Gastrointestinal/Abdominal: Soft, No Tenderness, No Guarding, No Rebound Pelvic: Vaginal Discharge (slight, pink-colored ), No Cervical Motion Tenderness, Other (normal female genitalia ) Extremity: Normal ROM Neurological/Psych: Oriented x3, Normal Speech, Normal Cognition ED Course And Treatment O2 Sat by Pulse Oximetry: 100 (on RA ) Pulse Ox Interpretation: Normal Medical Decision Making Medical Decision Making: Impression: 28 year old female with vaginal spotting and suprapubic fullness Plan: * urinalysis * reassess and disposition Progress: Urinalysis ordered and reviewed. On reassessment, patient is resting comfortably, showing no signs of distress and is stable for discharge. Patient will be prescribed Metrogel and is advised to follow up with her [employer] within 1-2 days for further evaluation. Disposition Counseled Patient/Family Regarding: Studies Performed, Diagnosis, Need For Followup - Disposition Disposition: HOME/ ROUTINE Disposition Time: 15:23 Condition: STABLE Additional Instructions: Please follow up with your gynecologists Prescriptions: metroNIDAZOLE 0.75% [Metrogel Cream] 1 applic VAG DAILY #1 tube Instructions: Bacterial Vaginosis (DC) Forms: [facility] ([place]), General Discharge Instructions - POA Present On Arrival: None - Clinical Impression Clinical Impression: BV (bacterial vaginosis) - Scribe Statement The provider has reviewed the documentation as recorded by the Scribe (Shahida Nicolas) Provider Attestation: All medical record entries made by the Scribe were at my direction and personally dictated by me. I have reviewed the chart and agree that the record accurately reflects my personal performance of the history, physical exam, medical decision making, and the department course for this patient. I have also personally directed, reviewed, and agree with the discharge instructions and disposition.
== END 2018-08-13 15:53 | disposition home or self-care (01) ==
LOC: C.ER 12:30
DX: N76.0 Acute vaginitis (principal)

== ENCOUNTER 2018-09-15 08:27 | Emergency (ER) | payer OTHER ==
[2018-09-15 08:55] VITALS: BMI 32.9
[2018-09-15 09:01] VITALS: RESP 18
--- NOTE | 2018-09-15 09:22 | RAD ---
Date of service: 09/15/2018 HISTORY: cough COMPARISON: 01/26/2014 TECHNIQUE: Chest PA and lateral FINDINGS: LUNGS: No active pulmonary disease. PLEURA: No significant pleural effusion identified. No pneumothorax apparent. CARDIOVASCULAR: No aortic atherosclerotic calcification present. Normal cardiac size. No pulmonary vascular congestion. OSSEOUS STRUCTURES: No significant abnormalities. VISUALIZED UPPER ABDOMEN: Normal. OTHER FINDINGS: None. IMPRESSION: No active disease.
--- NOTE | 2018-09-15 09:50 | C.PDOC ---
History Of Present Illness 28-year-old female, presents to the emergency department with complaints of a cough ongoing for two months and lip discoloration. Pt is a smoker. Denies fever, nausea/vomiting. No other complaints at this time. Time Seen by Provider: 09/15/18 09:03 Chief Complaint (Nursing): Cough, Cold, Congestion History Per: Patient History/Exam Limitations: no limitations Past Medical History Reviewed: Historical Data, Nursing Documentation, Vital Signs Vital Signs: Last Vital Signs Temp 98.7 F 09/15/18 08:55 Pulse 86 09/15/18 08:55 Resp 18 09/15/18 08:55 BP 120/74 09/15/18 08:55 Pulse Ox 100 09/15/18 08:55 - Medical History PMH: Gall Bladder Disease (2006), HTN (gestational, 2012) Denies: Diabetes, Hepatitis, HIV, Chronic Kidney Disease, Seizures, Sexually Transmitted Disease Surgical History: Cholecystectomy (2006), Endoscopy - [facility] Procedures INJECT RH IMMUNE GLOBUL (05/10/15) Family History: States: No Known Family Hx - Social History Hx Tobacco Use: Yes Hx Alcohol Use: Yes Hx Substance Use: No - Immunization History Hx Tetanus Toxoid Vaccination: No Hx Influenza Vaccination: No Hx Pneumococcal Vaccination: No Review Of Systems Constitutional: Negative for: Fever Respiratory: Positive for: Cough Gastrointestinal: Negative for: Nausea, Vomiting Physical Exam - Physical Exam Appears: Non-toxic, No Acute Distress Skin: Normal Color, Warm, Dry, No Diaphoretic, No Rash Head: Atraumatic Eye(s): bilateral: Normal Inspection Nose: Normal Oral Mucosa: Moist Lips: Normal Appearing Throat: Erythema (pharyngeal, mild) Neck: Normal ROM, Supple Cardiovascular: Rhythm Regular, No Murmur Respiratory: Normal Breath Sounds, No Accessory Muscle Use Extremity: Normal ROM Neurological/Psych: Oriented x3, Normal Speech ED Course And Treatment O2 Sat by Pulse Oximetry: 100 Pulse Ox Interpretation: Normal (RA) Medical Decision Making Medical Decision Making: cxr neg. pt well appearing. adise outpt fu. lungs cta. advised outpt ent/dental f/u Disposition - Disposition Disposition: HOME/ ROUTINE Disposition Time: 11:00 Condition: STABLE Additional Instructions: follow up with your doctor/clinic. return to er with worsening symptoms or concerns. Instructions: Cough in Adults Forms: [employer] ([place]) - Clinical Impression Clinical Impression: Cough - Scribe Statement The provider has reviewed the documentation as recorded by the Scribe (Keke Cowart) Provider Attestation: All medical record entries made by the Scribe were at my direction and personally dictated by me. I have reviewed the chart and agree that the record accurately reflects my personal performance of the history, physical exam, medical decision making, and the department course for this patient. I have also personally directed, reviewed, and agree with the discharge instructions and disposition.
[2018-09-15 10:29] VITALS: BP 120/80; PULSE 85; TEMP 99.1
[2018-09-15 11:17] VITALS: O2SAT 100
== END 2018-09-15 10:28 | disposition home or self-care (01) ==
LOC: C.ER 08:27
DX: R05 Cough (principal)